=== PATIENT | male | born 1995 | race Caucasian/White ===

== ENCOUNTER 2023-10-17 14:22 | Emergency (ER) | payer MEDICAID ==
[~2023-10-17] VITALS: Ht 157.5 cm; Wt 70.0 kg
[2023-10-17 14:30] VITALS: O2SAT 99
[2023-10-17 17:37] LABS: CLARITY URINE CLEAR (CLEAR); COLOR URINE YELLOW (YELLOW); GLUCOSE URINE NEGATIVE (NEGATIVE); KETONES URINE NEGATIVE (NEGATIVE); LEUKOCYTE ESTERASE URINE NEGATIVE (NEGATIVE); NITRITE URINE NEGATIVE (NEGATIVE); OCCULT BLOOD URINE TRACE (NEGATIVE); PROTEIN URINE 2+ (NEGATIVE); SPECIFIC GRAVITY URINE 1.016 (1.005-1.030); UROBILINOGEN URINE 0.2 E.U./dL (0.2-1.0)
[2023-10-17 18:12] LABS: BACTERIA URINE NONE SEEN; RBC URINE NONE SEEN /hpf (0-2); SQUAMOUS EPITHELIAL CELL URINE 1+ /lpf (RARE/1+); WBC URINE 0-2 /hpf (0-2)
[2023-10-17] MEDS ORDERED: IBUP-2029 MT (18:31)
[2023-10-17] MEDS ORDERED: CYCL5TAB MT (18:32)
[2023-10-17 18:58] VITALS: BP 135/71; PULSE 70; RESP 18; TEMP 98.2
== END 2023-10-17 18:52 | disposition home or self-care (01) ==
LOC: ER 14:22
DX: M54.9 Dorsalgia, unspecified (principal)
CPT/HCPCS: 71046; 81003; 99284